=== PATIENT | female | born 1975 | race Caucasian/White ===

== ENCOUNTER 2016-05-14 12:09 | Day surgery (SDC) | payer OTHER ==
[~2016-05-14 12:09] MED LIST: DIPRIVAN 200 MG/20 ML IV ONE; Kenalog-40 IM ONE; Sensorcaine 0.25% 10 ML IJ ONE
[2016-05-14] MEDS ORDERED: Lactated Ringers 1,000 ML IV SCH (13:30)
[2016-05-14 13:41] VITALS: BP 140/88; PULSE 62; O2SAT 99
--- NOTE | 2016-05-14 16:40 | XRAY ---
Indication: Right L2-L5 MBB. Intraoperative fluoroscopy was provided for 11 seconds. Single frontal digital spot image submitted for interpretation demonstrates posterior spinal needles with the tips projecting over the expected course of the right L2-L5 nerve roots. Correlate with intraoperative findings/report.
--- NOTE | 2016-05-14 16:42 | XRAY ---
11 seconds fluoro time in surgery for L2-L5 LMBB right side.
== END 2016-05-14 14:00 | disposition home or self-care (01) ==
LOC: SDC-PAIN 12:09
PROVIDERS: ATTEND Pain Medicine Interventional Pain Medicine
DX: M47.816 Spondylosis without myelopathy or radiculopathy, lumbar region (principal); M54.5 Low back pain; M51.86 Other intervertebral disc disorders, lumbar region
CPT/HCPCS: 64493; 64494; 64495; 72020; 77003; J2704; J3301

== ENCOUNTER 2016-10-27 05:45 | Day surgery (SDC) | payer OTHER ==
[2016-10-27] MEDS ORDERED: Zofran 4 MG/2 ML VIAL IV STA (06:38)
[2016-10-27] MEDS ORDERED: Zofran 4 MG/2 ML VIAL ONE (06:40)
[2016-10-27] MEDS ORDERED: Lactated Ringers 1,000 ML IV SCH (07:00)
[2016-10-27 10:25] VITALS: BP 138/74
[2016-10-27] MEDS ORDERED: Versed 2 MG/2 ML Injection IV ONE (10:30)
[2016-10-27] MEDS ORDERED: DIPRIVAN 200 MG/20 ML IV ONE (10:30)
[2016-10-27] MEDS ORDERED: SUBLIMAZE 100 MCG/2 ML IV ONE (10:30)
[2016-10-27 10:34] VITALS: O2SAT 100
[2016-10-27 10:38] VITALS: PULSE 69
--- NOTE | 2016-10-27 12:41 | OP ---
SURGERY DATE/TIME: 10/27/2016 0732 PREOPERATIVE DIAGNOSES: 1) Epigastric pain. 2) Dysphagia. 3) Anemia. POSTOPERATIVE DIAGNOSES: 1) Gastropathy. 2) Hiatal hernia. 3) Grade II esophagitis. 4) Normal colon. PROCEDURES: 1) EGD with biopsy. 2) Colonoscopy. SURGEON: Dr. Cobb. ANESTHESIA: MAC. Medications given by anesthesia department. HISTORY: The patient is a 41 year-old white female who presents now for complaints of dysphagia particularly with bread. She reports that she has had upper endoscopy before which revealed hiatal hernia. She reports that she has been having anemia problems for which she has been seeing Dr. Graff who wished her to have endoscopic evaluation due to his inability to get her blood count up. The patient was appraised of the risks of the procedure including the risk of perforation, phlebitis, untoward reaction to medication, bleeding and missed lesions. The patient verbalized her understanding and desired to have the procedure performed. DESCRIPTION OF PROCEDURE: The patient was given the medications by the anesthesia department. She had continuous pulse oximetry, ECG monitoring, intermittent blood pressure monitoring and tidal CO2 monitoring during the examination. She was placed in the left lateral decubitus position. A bite block was placed and the flexible Olympus gastroscope was used to intubate the oropharynx. A view of the larynx was obtained and was normal. The scope was introduced in the esophagus which appeared to be normal to the distal esophagus where there appeared to be a hiatal hernia and two areas of what appeared to be reflux esophagitis. The scope was passed in the stomach. Gastric clark was suctioned dry and the stomach was insufflated. The scope was passed along the greater curvature of the stomach to the antrum. There appeared to be areas of punctate bleeding throughout the body of the stomach. No erosions or ulcerations however were encountered. The pylorus is intubated and duodenum inspected and found to be normal. The scope was withdrawn towards the stomach. Again, a retroflex view was obtained of the lesser curvature, fundus and cardia regions of the stomach and these appeared to be normal. 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 The scope was then removed from the patient. Next, a digital rectal examination was performed and revealed normal anal sphincter tone and no masses. The flexible Olympus pediatric colonoscope was used to intubate the rectum. A view of the colon was developed sequentially to the cecum. Upon insertion and withdrawal, including a retroflex view in the rectum, no mucosal lesions were encountered. The scope was removed from the patient who tolerated the procedure well and was sent back to OP recovery in good condition. The prep was noted to be fair to poor.
== END 2016-10-27 09:15 | disposition home or self-care (01) ==
LOC: SDC 05:45
PROVIDERS: ATTEND Family Medicine
PROC: 0DB68ZX Excision of Stomach, Via Natural or Artificial Opening Endoscopic, Diagnostic (ICD-10-PCS; principal; 2016-10-27)
PROC: 0DJD8ZZ Inspection of Lower Intestinal Tract, Via Natural or Artificial Opening Endoscopic (ICD-10-PCS; 2016-10-27)
DX: K31.9 Disease of stomach and duodenum, unspecified (principal); K44.9 Diaphragmatic hernia without obstruction or gangrene; K20.9 Esophagitis, unspecified; R13.10 Dysphagia, unspecified; D64.9 Anemia, unspecified
CPT/HCPCS: 00740; 00810; 36415; 88305; J2250; J2405; J2704; J3010

== ENCOUNTER 2019-04-29 06:08 | Day surgery (SDC) | payer OTHER ==
[2019-04-29] MEDS ORDERED: Lactated Ringers 1,000 ML IV SCH (06:30)
[2019-04-29] MEDS ORDERED: Lactated Ringers 1,000 ML IV ONE (06:59)
[2019-04-29] MEDS ORDERED: DIPRIVAN 200 MG/20 ML IV ONE (07:54)
[2019-04-29] MEDS ORDERED: Ketamine HCl 50 MG/ML ONE (07:55)
[2019-04-29 09:11] VITALS: BP 156/95; PULSE 76; O2SAT 94
--- NOTE | 2019-04-29 09:34 | OP ---
SURGERY DATE/TIME: 04/29/2019 0807 PREOPERATIVE DIAGNOSIS: Dysphagia and history of Draper's esophagus. POSTOPERATIVE DIAGNOSIS: Dysphagia and history of Draper's esophagus. PROCEDURE: Esophagogastroduodenoscopy with biopsy. SURGEON: Dr. Cobb. ANESTHESIA: Medications were given by the anesthesia department. BRIEF HISTORY: The patient is a 43 year old white female who has had previous endoscopic evaluations. She reports that she has had Draper's esophagus. The patient now reports she is having recurrence of reflux and food sticking particularly bread and chicken. The patient was felt the need to have endoscopic evaluation. She was appraised of the risks of the procedure including the risk of perforation, phlebitis, untoward reaction to medication, bleeding and missed lesions. The patient verbalized her understanding and desired to have the procedure performed. DESCRIPTION OF PROCEDURE: The patient was given the medications by the anesthesia department. She had continuous pulse oximetry, ECG monitoring, intermittent blood pressure monitoring and tidal CO2 monitoring during the examination. She was placed in the left lateral decubitus position. A bite block was placed and the flexible Olympus gastroscope was used to intubate the oropharynx. A view of the larynx was obtained and was normal. Scope was easily introduced in the esophagus which appeared to be normal to the gastroesophageal junction where there appeared to be a benign stricture and superficial ulcerated area. There also appeared to be a small area of Draper's metaplasia and there was also noted to be a hiatal hernia present. The scope was passed in the stomach where normal gastric rugal folds were seen and these distended nicely with insufflation of air. The scope was passed along the greater curvature of the stomach to the antrum. There appeared to be a moderate erythema throughout the stomach. The pylorus was encountered and intubated. The duodenum was inspected and found to be normal. The scope is withdrawn towards the stomach. A retroflex view was obtained of the lesser curvature, fundus and cardia regions of the stomach and there appeared to be again the appearance of a hiatal hernia but otherwise was normal. The scope was redirected towards the gastric antrum and biopsies were obtained to rule out the presence of Helicobacter pylori-type organisms. The scope was withdrawn towards the esophagus at the gastroesophageal junction. 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 The scope was removed from the patient who tolerated the procedure well and was sent back to outpatient recovery in good condition.
== END 2019-04-29 09:20 | disposition home or self-care (01) ==
LOC: SDC 06:08
PROVIDERS: ATTEND Family Medicine
DX: R13.10 Dysphagia, unspecified (principal); K44.9 Diaphragmatic hernia without obstruction or gangrene; Z87.19 Personal history of other diseases of the digestive system
CPT/HCPCS: J2704

== ENCOUNTER 2021-10-07 06:20 | Day surgery (SDC) | payer OTHER ==
[~2021-10-07 06:20] MED LIST changes: -DIPRIVAN 200 MG/20 ML IV ONE; -Kenalog-40 IM ONE; +Lactated Ringers 1,000 ML IV SCH; -Sensorcaine 0.25% 10 ML IJ ONE
[2021-10-07] MEDS ORDERED: DIPRIVAN 200 MG/20 ML IV ONE ×2 (07:57→08:11)
[2021-10-07] MEDS ORDERED: Xylocaine-Mpf 2% 5 Ml Vial ONE (07:57)
[2021-10-07 08:52] VITALS: O2SAT 98
[2021-10-07 09:18] VITALS: BP 133/77; PULSE 71
--- NOTE | 2021-10-07 17:07 | OP ---
SURGERY DATE: 10/07/2021 SURGERY TIME: 758 PREOPERATIVE DIAGNOSIS: 1. EPIGASTRIC PAIN AND REFLUX. 2. FAMILY HISTORY OF COLON CANCER. POSTOPERATIVE DIAGNOSIS: 1. HIATAL HERNIA. 2. GRADE I REFLUX ESOPHAGITIS. 3. MILD GASTRITIS. 4. NORMAL COLON. PROCEDURE: 1. Esophagogastroduodenoscopy with cold forceps biopsy of the gastric antrum. 2. Colonoscopy. SURGEON: Dr. Cobb. ANESTHESIA: MAC, given by the Anesthesia Department. BRIEF HISTORY: The patient is a 46 y/o WF who has been having epigastric problems. The patient was felt to need to have endoscopic evaluation. She was also noted to have a family history positive for colon cancer. The patient wished to have her screening colonoscopy performed as well. The patient was described the risks of the procedure including the risk of perforation, phlebitis, untoward reaction to medication, bleeding, and missed lesions. The patient verbalized her understanding and desired to have the procedure performed. DESCRIPTION OF PROCEDURE: The patient was given the medications by the Anesthesia Department. She had continuous pulse oximetry, ECG monitoring, intermittent BP monitoring, and end tidal CO2 monitoring during the examination. She was placed in the left lateral decubitus position. A bite block was placed and the flexible Olympus gastroscope was used to intubate the oropharynx. A view of the larynx was obtained and was normal. The scope was easily introduced in the esophagus where there appeared to be the presence of a hiatal hernia and grade I reflux esophagitis. The scope was passed along the greater curvature of the stomach to the antrum. The pylorus was widely patent and the duodenum was inspected and found to be normal. The scope was withdrawn towards the stomach and retroflex view was obtained and revealed the hiatal hernia, but otherwise normal mucosa. The scope was directed towards the gastric antrum and biopsies were obtained to rule out the presence of H-pylori type organisms. The scope was removed from the patient. Next, a digital rectal examination was performed and revealed normal anal sphincter tone and no masses. The flexible Olympus pediatric colonoscope was used to intubate the rectum. A view of the colon was developed sequentially to the cecum. Upon insertion and withdrawal, including a retroflex view in the rectum, no mucosal lesions were noted, although there were noted to be large amounts of liquid stool which were suctioned clear during the examination resulting in a fair prep.
== END 2021-10-07 09:40 | disposition home or self-care (01) ==
LOC: SDC 06:20
PROVIDERS: ATTEND Family Medicine
DX: K44.9 Diaphragmatic hernia without obstruction or gangrene (principal); R10.13 Epigastric pain; K21.9 Gastro-esophageal reflux disease without esophagitis; Z80.0 Family history of malignant neoplasm of digestive organs; K20.90 Esophagitis, unspecified without bleeding; K29.70 Gastritis, unspecified, without bleeding
CPT/HCPCS: 81025; J2704

== ENCOUNTER 2024-02-10 14:03 | Day surgery (SDC) | payer OTHER ==
[2013-01-05 15:04] VITALS: BP 125/78
[2024-02-10] MEDS ORDERED: Decadron 4 MG INJ IV ONE (14:04)
[2024-02-10] MEDS ORDERED: Sodium Chloride 0.9(Preservative Free) 10 ML IJ ONE (14:04)
[2024-02-10] MEDS ORDERED: LIDOCAINE HCL 1% AMPUL 5 ML IJ ONE (14:04)
[2024-02-10] MEDS ORDERED: Depo-Medrol 40 MG/ML IM ONE (14:04)
[2024-02-10 15:02] LABS: HCG URINE TEST NEGATIVE (NEGATIVE)
[2024-02-10] MEDS ORDERED: DIPRIVAN 200 MG/20 ML IV ONE (16:04)
--- NOTE | 2024-02-10 20:47 | XRAY ---
Indication: Lumbar YANET. Intraoperative fluoroscopy provided for 24 seconds. 2 digital spot images submitted for interpretation demonstrates posterior needle tip projecting posterior to L3. Small amount of contrast injected for needle tip placement. Correlate with intraoperative findings/report.
--- NOTE | 2024-02-10 20:49 | XRAY ---
Indication: Bilateral piriformis injection. Intraoperative fluoroscopy provided for 17 seconds. 2 digital spot images submitted for interpretation demonstrates posterior needle tips projecting over left and right piriformis. Small amount of contrast injected for both needle tip placement. Correlate with intraoperative findings/report.
--- NOTE | 2024-02-11 09:54 | XRAY ---
24 seconds of fluoroscopy were used in surgery for a lumbar YANET.
--- NOTE | 2024-02-11 09:54 | XRAY ---
17 seconds of fluoroscopy were used in surgery for bilateral piriformis muscle injections.
== END 2024-02-10 16:40 | disposition home or self-care (01) ==
LOC: SDC-PAIN 14:03
PROVIDERS: ATTEND Psychiatry & Neurology Pain Medicine
DX: M54.16 Radiculopathy, lumbar region (principal); M79.18 Myalgia, other site
CPT/HCPCS: 20552; 62323; 72100; 72170; 77002; 77003; 81025; J1100; J2704; Q9966

== ENCOUNTER 2025-03-02 12:38 | Day surgery (SDC) | payer OTHER ==
[2013-01-05 15:04] VITALS: BP 125/78
[2025-03-02] MEDS ORDERED: LIDOCAINE HCL 1% 50 MG/5 ML VL IJ ONE (12:39)
[2025-03-02] MEDS ORDERED: Sodium Chloride 0.9(Preservative Free) 10 ML IJ ONE (12:39)
[2025-03-02] MEDS ORDERED: methylPREDNISolone acetate IM ONE (12:39)
[2025-03-02 13:40] LABS: HCG URINE TEST NEGATIVE (NEGATIVE)
[2025-03-02] MEDS ORDERED: D50W 50 ml Abboject IV ONE (14:00)
[2025-03-02] MEDS ORDERED: propofoL IV ONE (14:39)
[2025-03-02] MEDS ORDERED: Lactated Ringers 1,000 ML IV ONE (14:59)
--- NOTE | 2025-03-02 16:37 | XRAY ---
Indication: Lumbar YANET. Intraoperative fluoroscopy provided for 9 seconds. 2 digital spot image submitted for interpretation demonstrates posterior needle tip projecting posterior to lumbosacral junction. Small amount of contrast injected for needle tip placement. Correlate with intraoperative findings/report.
--- NOTE | 2025-03-02 17:00 | XRAY ---
9 seconds of fluoroscopy was used in surgery for a lumbar YANET.
== END 2025-03-02 15:20 | disposition home or self-care (01) ==
LOC: SDC-PAIN 12:38
PROVIDERS: ATTEND Psychiatry & Neurology Pain Medicine
DX: M54.16 Radiculopathy, lumbar region (principal); E11.9 Type 2 diabetes mellitus without complications